=== PATIENT | male | born 1970 | race Caucasian/White ===

== ENCOUNTER 2020-05-02 05:34 | Inpatient (IN) ==
[2020-05-02] MEDS ORDERED: ONDANSETRON 4 MG/2 ML VIAL IV STA (05:49)
[2020-05-02] MEDS ORDERED: ASPIRIN 325 MG TABLET ONE (05:49)
[2020-05-02] MEDS ORDERED: METOPROLOL TARTRATE 5 MG/5 ML VIAL IV ONE ×3 (05:49→07:52)
[2020-05-02] MEDS ORDERED: NITROGLYCERIN DRIP 50 MG/250 ML BOTTLE IV ONE (05:49)
[2020-05-02] MEDS ORDERED: MORPHINE 4 MG/1 ML VIAL ONE (05:49)
[2020-05-02] MEDS ORDERED: METOPROLOL TARTRATE 5 MG/5 ML VIAL IV STA (05:49)
[2020-05-02] MEDS ORDERED: MORPHINE 4 MG/1 ML VIAL IV STA (05:49)
[2020-05-02] MEDS ORDERED: ONDANSETRON 4 MG/2 ML VIAL ONE (05:49)
[2020-05-02] MEDS ORDERED: HEPARIN 5,000 UNIT/1 ML VIAL IV ONE (05:49)
[2020-05-02] MEDS ORDERED: ASPIRIN 325 MG TABLET PO STA ×2 (05:49)
[2020-05-02] MEDS ORDERED: HEPARIN 5,000 UNIT/1 ML VIAL ONE ×2 (05:50→06:42)
[2020-05-02 06:06] LABS: Basophils # 0.1 10*3/uL (0.0-0.2); Basophils % 0.8 % (0.0-0.8); Eosinophils # 0.3 10*3/uL (0.0-0.87); Eosinophils % 3.8 % (0.00-10.9); Hematocrit 51.2 VOL% (42.0-52.0); Hemoglobin 18.2 GM/DL (14.0-18.0); Immature Granulocytes % 0.6 %; Immature Granulocytes Absolute 0.05 #; Lymphocytes # 2.7 10*3/uL (1.4-4.0); Lymphocytes % 32.3 % (21.2-54.2); Mean Corpuscular HGB Conc 35.5 GM/DL (32-36); Mean Corpuscular Volume 84.6 FL (87-102); Mean Platelet Volume 9.6 FL (9.6-12.0); Monocytes % 7.7 % (1.7-12.7); Neutrophils % 54.8 % (38.7-73.9); Platelet Count 185 T/CUMM (130-400); Red Blood Count 6.05 MC/CUMM (3.8-5.5); Red Cell Distribution Width 11.9 % (9.3-17.3); White Blood Count 8.5 T/CUMM (4-12)
[2020-05-02] MEDS ORDERED: LIDOCAINE 1% 20 ML VIAL ONE (06:19)
[2020-05-02] MEDS ORDERED: MIDAZOLAM 2 MG/2 ML VIAL ONE (06:21)
[2020-05-02] MEDS ORDERED: fentaNYL 100 MCG/2 ML VIAL ONE (06:21)
[2020-05-02] MEDS: NITROGLYCERIN DRIP 50 MG/250 ML BOTTLE IV SCH (06:30)
[2020-05-02] MEDS: EPTIFIBATIDE 20,000 MCG/10 ML VIAL IV SCH ×2 (06:30→08:34)
[2020-05-02 06:36] LABS: Albumin 4.2 G/DL (3.4-5.0); Bilirubin,Total 0.6 MG/DL (0.2-1.0); Calcium 9.5 MG/DL (8.5-10.1); Osmolality,Calculated 279.1 MOS/KG (273-304); Total Protein 7.8 G/DL (6.4-8.3)
[2020-05-02] MEDS ORDERED: TIROFIBAN 5,000 MCG/100 ML PREMIX IV ONE (06:47)
[2020-05-02] MEDS ORDERED: TICAGRELOR 90 MG TABLET ONE (07:20)
[2020-05-02] MEDS: TIROFIBAN 5,000 MCG/100 ML PREMIX IV SCH ×2 (07:55→13:25)
[2020-05-02] MEDS ORDERED: MAGNESIUM SULF RIDER 2 GM in PREMIX 1 EACH IV PRN (08:26)
[2020-05-02] MEDS ORDERED: MAGNESIUM SULF RIDER 4 GM in PREMIX 1 EACH IV PRN (08:26)
[2020-05-02] MEDS: EPTIFIBATIDE 75 MG/100 ML BOTTLE IV SCH ×2 (08:35→12:03)
[2020-05-02 10:34] LABS: Risk Ratio 5.91; Thyroid Stimulating Hormone 4.39 uIU/ml (0.358-3.74); VLDL CHOLESTEROL 70.4 MG/DL
[2020-05-02 10:44] LABS: CKMB % 6.9 %
[2020-05-02 10:47] LABS: Troponin I 36.7 NG/ML (0.00-0.045)
[2020-05-02] MEDS: TICAGRELOR 90 MG TABLET PO SCH ×2 (10:52→21:11)
[2020-05-02] MEDS: carvediloL 12.5 MG TABLET PO SCH ×3 (10:52→21:11)
[2020-05-02] MEDS: PANTOPRAZOLE 40 MG TABLET PO SCH (10:52)
[2020-05-02] MEDS: ASPIRIN CHEW 81 MG TABLET PO SCH (10:52)
[2020-05-02] MEDS: SODIUM CHLORIDE 0.9% 1,000 ML IV SCH ×2 (11:00→18:11)
[2020-05-02] MEDS ORDERED: NITROGLYCERIN SL 0.4 MG TABLET SL PRN (12:41)
[2020-05-02] MEDS ORDERED: MORPHINE 4 MG/1 ML VIAL IV PRN (12:41)
[2020-05-02] MEDS: INSULIN REGULAR 100 UNIT/ML SUBCUT SCH ×3 (13:25→21:11)
[2020-05-02 17:50] LABS: CKMB % 7.7 %
[2020-05-02 18:08] LABS: Troponin I 55.3 NG/ML (0.00-0.045)
[2020-05-02] MEDS: ROSUVASTATIN 20 MG TABLET PO SCH (21:11)
[2020-05-03 01:35] LABS: Basophils # 0.1 10*3/uL (0.0-0.2); Basophils % 0.5 % (0.0-0.8); Eosinophils # 0.4 10*3/uL (0.0-0.87); Eosinophils % 3.7 % (0.00-10.9); Hematocrit 45.9 VOL% (42.0-52.0); Hemoglobin 16.4 GM/DL (14.0-18.0); Immature Granulocytes % 0.5 %; Immature Granulocytes Absolute 0.05 #; Lymphocytes # 2.5 10*3/uL (1.4-4.0); Lymphocytes % 22.7 % (21.2-54.2); Mean Corpuscular HGB Conc 35.7 GM/DL (32-36); Mean Corpuscular Volume 85.5 FL (87-102); Mean Platelet Volume 9.4 FL (9.6-12.0); Monocytes % 8.4 % (1.7-12.7); Neutrophils % 64.2 % (38.7-73.9); Platelet Count 158 T/CUMM (130-400); Red Blood Count 5.37 MC/CUMM (3.8-5.5); Red Cell Distribution Width 12.1 % (9.3-17.3); White Blood Count 10.9 T/CUMM (4-12)
[2020-05-03 01:58] LABS: Albumin 3.1 G/DL (3.4-5.0); Bilirubin,Total 0.5 MG/DL (0.2-1.0); Calcium 8.5 MG/DL (8.5-10.1); Osmolality,Calculated 278.1 MOS/KG (273-304); Total Protein 6.4 G/DL (6.4-8.3)
[2020-05-03 02:00] LABS: CKMB % 5.7 %
[2020-05-03] MEDS: carvediloL 12.5 MG TABLET PO SCH ×4 (03:45→21:19)
[2020-05-03] MEDS: FENOFIBRATE 145 MG TABLET PO SCH (08:30)
[2020-05-03] MEDS: INSULIN REGULAR 100 UNIT/ML SUBCUT SCH ×4 (08:30→21:19)
[2020-05-03] MEDS: glipiZIDE 5 MG TABLET PO SCH (08:30)
[2020-05-03] MEDS: PANTOPRAZOLE 40 MG TABLET PO SCH (08:30)
[2020-05-03] MEDS ORDERED: ASPIRIN EC 325 MG TABLET PO SCH (09:00)
[2020-05-03] MEDS: NITROGLYCERIN DRIP 50 MG/250 ML BOTTLE IV SCH (10:51)
[2020-05-03] MEDS: ASPIRIN CHEW 81 MG TABLET PO SCH (10:52)
[2020-05-03] MEDS: MULTIVITAMIN (CENTRUM) TABLET PO SCH (10:58)
[2020-05-03 14:03] LABS: Barbiturates Screen,Urine Negative (Negative); Benzodiazepines Screen,Urine Positive (Negative); Cannabinoid Screen,Urine Negative (Negative); Opiate Screen,Urine Positive (Negative); Phencyclidine Screen,Urine Negative (Negative)
[2020-05-03] MEDS: ROSUVASTATIN 20 MG TABLET PO SCH (21:20)
[2020-05-03] MEDS: TICAGRELOR 90 MG TABLET PO SCH (21:20)
[2020-05-04] MEDS: carvediloL 12.5 MG TABLET PO SCH ×2 (04:22→08:59)
[2020-05-04] MEDS: INSULIN REGULAR 100 UNIT/ML SUBCUT SCH (08:57)
[2020-05-04] MEDS: PANTOPRAZOLE 40 MG TABLET PO SCH (08:58)
[2020-05-04] MEDS: MULTIVITAMIN (CENTRUM) TABLET PO SCH (08:58)
[2020-05-04] MEDS: FENOFIBRATE 145 MG TABLET PO SCH (08:58)
[2020-05-04] MEDS: TICAGRELOR 90 MG TABLET PO SCH (08:58)
[2020-05-04] MEDS: glipiZIDE 5 MG TABLET PO SCH (08:59)
[2020-05-04 09:50] VITALS: BP 140/95
== END 2020-05-04 11:55 | disposition home or self-care (01) | DRG 247 ==
LOC: N.ED 05:34 → N.EDINP 05:34 → N.CC 06:17 → SUPCPDRO 08:26 → N.TELES 05-03 11:25
PROVIDERS: ADMIT Internal Medicine Cardiovascular Disease; ATTEND Internal Medicine Cardiovascular Disease
PROC: CLCCHCL (ICD-10-PCS; 2020-05-02 06:45)